=== PATIENT | female | born 1990 | race Caucasian/White ===

== ENCOUNTER → 2022-03-07 | Outpatient (CLI) | payer MEDICAID | END | disposition home or self-care (01) | LOC: LAB 12:05 | PROVIDERS: ATTEND Surgery | DX: Z01.812 Encounter for preprocedural laboratory examination (principal); Z20.822 Contact with and (suspected) exposure to COVID-19 | CPT/HCPCS: 87426; C9803 ==

== ENCOUNTER 2022-03-10 05:33 | Day surgery (SDC) | payer MEDICAID ==
[~2022-03-10] VITALS: Ht 167.6 cm; Wt 74.8 kg
[~2022-03-10 05:33] MED LIST: LACTATED RINGERS 1,000 ML IV SCH
[2022-03-10 06:10] LABS: UCG SCREEN NEGATIVE
[2022-03-10] MEDS ORDERED: POLYMYXIN B SULFATE 500000 UNITS/VIAL ONE (06:50)
[2022-03-10] MEDS ORDERED: BUPIVACAINE HCL 0.5% (5MG/ML) 50ML ONE (06:50)
[2022-03-10] MEDS ORDERED: LIDOCAINE HCL 1% 50ML VIAL (10MG/ML) ONE (06:50)
[2022-03-10] MEDS ORDERED: ONDANSETRON HCL 4MG/2ML INJ ONE (07:25)
[2022-03-10] MEDS ORDERED: MIDAZOLAM HCL 2 MG/2 ML VIAL ONE (07:25)
[2022-03-10] MEDS ORDERED: FENTANYL CITRATE/PF 50MCG/ML 2ML VIAL ONE (07:25)
[2022-03-10] MEDS ORDERED: DEXAMETHASONE 4MG/ML 1ML VIAL ONE (07:25)
[2022-03-10] MEDS ORDERED: PROPOFOL 200MG/20ML VIAL IV ONE (07:25)
[2022-03-10] MEDS ORDERED: HYDROMORPHONE HCL/PF 2MG/ML CPJ IV PRN (07:45)
[2022-03-10] MEDS ORDERED: MEPERIDINE HCL/PF 25MG/ML CPJ IV PRN (07:45)
[2022-03-10] MEDS ORDERED: LABETALOL 5MG/ML SYR 20 MG/4 ML SYRINGE IV PRN (07:45)
[2022-03-10] MEDS ORDERED: ONDANSETRON HCL 4MG/2ML INJ IV PRN (07:45)
[2022-03-10] MEDS ORDERED: FEXO-25 PO (07:52)
== END 2022-03-10 10:41 | disposition home or self-care (01) ==
LOC: OR 05:33
PROVIDERS: ATTEND Surgery
DX: L02.211 Cutaneous abscess of abdominal wall (principal); Z79.899 Other long term (current) drug therapy; Z98.890 Other specified postprocedural states
CPT/HCPCS: 49020; 49250; 81025; 88305; J1100; J2250; J2405; J2704; J3010; J3490; J7120